=== PATIENT | female | born 1990 | race Two or more races ===

== ENCOUNTER 2019-05-04 17:22 | Emergency (ER) | payer MEDICAID ==
[~2019-05-04] VITALS: Ht 162.6 cm; Wt 60.8 kg
--- NOTE | 2019-05-04 17:49 | NUR ---
PATIENT PRESENTS TO ED TODAY FOR INTERMITTENT VAG BLEEDING WITH FOUL ODOR POST SEXUAL INTERCOURSE 2 DAYS AGO, PATIENT REPORTS IUD INSERTION 5 YEARS AGO. PELVIC CART OUTSIDE ROOM, AWAITING MD ORDERS CALL LIGHT WITHIN REACH.
--- NOTE | 2019-05-04 18:28 | NUR ---
LAB AT BEDSIDE, US AT BEDSIDE FOR TRANSPORT TO RADIOLOGY LABS DRAWN.
[2019-05-04 18:37] LABS: BASOPHILS # (AUTO) 0.05 x10^3/uL (0-0.1); BASOPHILS % (AUTO) 1 % (0-1); EOSINOPHILS # (AUTO) 0.16 x10^3/uL (0-0.4); EOSINOPHILS % (AUTO) 2 % (1-7); LYMPHOCYTES # (AUTO) 2.88 x10^3/uL (1-3.4); LYMPHOCYTES % (AUTO) 39 % (22-44); MD NO; MEAN CORPUSCULAR HGB CONC 33.6 g/dL (32.4-35.8); MEAN CORPUSCULAR VOLUME 98.3 fL (80-100); MEAN PLATELET VOLUME 8.7 fL (7.4-10.4); MONOCYTES # (AUTO) 0.43 x10^3/uL (0.2-0.8); MONOCYTES % (AUTO) 6 % (2-9); NEUTROPHILS # (AUTO) 3.94 x10^3/uL (1.8-6.8); NEUTROPHILS % (AUTO) 53 % (42-75); PLATELET COUNT 265 x10^3/uL (130-400); RED BLOOD COUNT 4.18 x10^6/uL (3.82-5.3); RED CELL DISTRIBUTION WIDTH 12.8 % (9.6-15.2)
[2019-05-04 18:50] LABS: ALBUMIN 3.4 g/dL (3.4-5.0); ANION GAP 5 mmol/L (5-15); CALCIUM 8.4 mg/dL (8.5-10.1); CHLORIDE 110 mmol/L (98-107); CREATININE 0.69 mg/dL (0.55-1.02)
--- NOTE | 2019-05-04 18:55 | NUR ---
PELVIC READY FOR MD, PATIENT AMB WITH STEADY GAIT TO BATHROOM, UA COLLECTED AND SENT TO LAB. AWAITING RESULTS. PATIENT SITTING IN GURNEY, WATCHING TV, NADN.
[2019-05-04 18:56] VITALS: BP 115/76
--- NOTE | 2019-05-04 19:03 | NUR ---
AT BEDSIDE FOR PELVIC.
[2019-05-04 19:21] LABS: CLUE CELLS NONE SEEN (NONE SEEN); WET PREP WBCS FEW (FEW)
[2019-05-04 19:25] LABS: MICROSCOPIC INDICATED
[2019-05-04 19:42] LABS: CULTURE INDICATED? YES
--- NOTE | 2019-05-04 19:57 | NUR ---
Patient/Caregiver given discharge instructions and they have confirmed that they understand the instructions. Patient ambulatory with steady gait.
== END 2019-05-04 19:59 | disposition home or self-care (01) ==
LOC: ED 18:24
DX: N92.4 Excessive bleeding in the premenopausal period (principal); F17.200 Nicotine dependence, unspecified, uncomplicated
CPT/HCPCS: 36415; 76830; 80048; 81001; 82040; 84703; 85025; 87086; 87210; 87491; 87591; 87808; 99284

== ENCOUNTER 2019-05-08 21:15 | Emergency (ER) | payer MEDICAID ==
[~2019-05-08] VITALS: Ht 162.6 cm; Wt 60.6 kg
[2019-05-08 21:17] VITALS: BP 108/67
--- NOTE | 2019-05-08 21:27 | NUR ---
PT HERE FOR VAGINAL INFECTION (STI) TREATMENT.
[2019-05-08] MEDS ORDERED: LIDOCAINE-MPF 1%, 5ML ONE (21:30)
[2019-05-08] MEDS ORDERED: AZITHROMYCIN 500 MG TABLET ONE (21:30)
[2019-05-08] MEDS ORDERED: CEFTRIAXONE 250 MG ONE (21:30)
[2019-05-08] MEDS ORDERED: AZITHROMYCIN 500 MG TABLET PO ONE (21:30)
[2019-05-08] MEDS ORDERED: CEFTRIAXONE 250 MG IM ONE (21:30)
--- NOTE | 2019-05-08 21:36 | NUR ---
Patient/Caregiver given discharge instructions and they have confirmed that they understand the instructions. Patient ambulatory with steady gait.
== END 2019-05-08 22:17 | disposition home or self-care (01) ==
LOC: ED 21:34
DX: A54.02 Gonococcal vulvovaginitis, unspecified (principal); A54.9 Gonococcal infection, unspecified
CPT/HCPCS: 96372; 99283; J0696

== ENCOUNTER 2019-10-06 14:11 | Emergency (ER) | payer MEDICAID ==
[~2019-10-06] VITALS: Ht 152.4 cm; Wt 69.1 kg
[2019-10-06 15:06] LABS: MICROSCOPIC AUTO
[2019-10-06 15:08] LABS: CULTURE INDICATED? YES
[2019-10-06] MEDS ORDERED: HYDROcodone/APAP 5/325 TABLET ONE (16:11)
--- NOTE | 2019-10-06 16:13 | NUR ---
TASK RN: PT MEDICATED PER EMAR. AWARE OF DC PLAN. GETTING DRESSED NOW.
[2019-10-06] MEDS ORDERED: HYDROcodone/APAP 5/325 TABLET PO ONE (16:30)
[2019-10-06 17:06] VITALS: BP 114/93
--- NOTE | 2019-10-06 17:07 | NUR ---
PT STATES FLANK PAIN IMPROVED AFTER NORCO. D/C INSTRUCTIONS, MEDS & F/U APPT RV'WD WITH PT, SHE VERBALIZES UNDERSTANDING. AMBULATED OUT OF ED WITH FRIEND WITHOUT DIFFICULTY.
== END 2019-10-06 17:10 | disposition home or self-care (01) ==
LOC: ED 14:25
DX: M54.5 Low back pain (principal); R30.0 Dysuria; F17.200 Nicotine dependence, unspecified, uncomplicated
CPT/HCPCS: 81001; 87086; 99283